=== PATIENT | male | born 1980 | race Caucasian/White ===

== ENCOUNTER 2021-11-18 15:23 | Emergency (ER) | payer OTHER ==
[~2021-11-18] VITALS: Ht 177.8 cm; Wt 96.2 kg
[2021-11-18] MEDS ORDERED: IBUPROFEN 600 MG TAB PO STA (16:25)
[2021-11-18] MEDS ORDERED: CYCLOBENZAPRINE10 MG PO (16:26)
== END 2021-11-18 17:05 | disposition home or self-care (01) ==
LOC: ER 15:28
DX: M54.2 Cervicalgia (principal); M54.6 Pain in thoracic spine; V53.5XXA Driver of pick-up truck or van injured in collision with car, pick-up truck or van in traffic accident, initial encounter; Y92.488 Other paved roadways as the place of occurrence of the external cause
CPT/HCPCS: 71250; 72125; 99283